=== PATIENT | female | born 1990 | race Caucasian/White ===

== ENCOUNTER 2018-07-10 12:10 | Emergency (ER) | payer MEDICAID | END 2018-07-10 15:01 | disposition home or self-care (01) | LOC: FTE 12:10 | DX: J40 Bronchitis, not specified as acute or chronic (principal) | CPT/HCPCS: 71045; 99283-25 ==

== ENCOUNTER 2018-07-16 15:55 | Emergency (ER) | payer MEDICAID ==
[2018-07-16] MEDS: predniSONE 20 MG TAB PO (18:05)
[2018-07-16] MEDS: ALBUTEROL 0.083% (NEB) 2.5 MG/3 ML AMP HHN (18:07)
[2018-07-16] MEDS: IPRATROPIUM (NEB) 0.5 MG/2.5 ML AMP HHN (18:07)
== END 2018-07-16 18:43 | disposition home or self-care (01) ==
LOC: FTE 15:55
DX: R05 Cough (principal); R06.2 Wheezing
CPT/HCPCS: 94664; 99284-25